=== PATIENT | female | born 1960 | race Two or more races ===

== ENCOUNTER 2018-06-19 11:33 | Emergency (ER) | payer OTHER ==
[~2018-06-19] VITALS: Ht 157.5 cm; Wt 64.9 kg
[2018-06-19 11:33] VITALS: BP 124/73
== END 2018-06-19 12:03 | disposition home or self-care (01) ==
LOC: ER 11:44
DX: J06.9 Acute upper respiratory infection, unspecified (principal); J45.909 Unspecified asthma, uncomplicated
CPT/HCPCS: 99283; A4606; Z7610